=== PATIENT | male | born 1965 | race Caucasian/White ===

== ENCOUNTER 2024-01-06 09:46 | Outpatient (CLI) | payer OTHER, SELFPAY ==
--- NOTE | 2024-01-18 15:30 | WPDHOMESLEEP ---
Sleep Study - Home Unattended Date of Study: 01/06/24 Ordering Provider: Ritesh Alvarez, Interpreting Provider: Abbi Aguirre, DO Home Sleep Study Type: Watch PAT Height: 1.75 m Weight: 109.769 kg Body Mass Index: 35.7 Neck Circumference (inches): 16.5 Bath: 0 Reason for Sleep Study Snoring Sleep History The patient is air 58 old male with seasonal allergies and obesity that had a sleep study ordered by his primary care physician for evaluation of sleep apnea, The patient denies awakening from sleep short of breath. He rarely awakens at night with heartburn, belching or cough. He frequently snores and it is frequently loud enough that others complain. He denies having trouble sleeping when he has a cold. He denies waking up gasping for air throughout the night. He occasionally has breathing problems at night observed by himself or others. He denies sweating excessively at night. He denies having heart palpitations or irregular heartbeats during the night. He rarely falls asleep during the day and never falls asleep while driving. He denies sleep paralysis, cataplexy and hypnagogic / hypnopompic hallucinations. He denies having trouble at school or work due to sleepiness. He denies feeling afraid of going to sleep. He denies having nightmares. He occasionally remembers his dreams. He denies having thoughts racing through his mind. He denies feeling sad or depressed. He rarely has anxiety. He denies having muscular tension. He rarely notices parts of his body jerk. He denies kicking during the night. He denies having crawling and aching feelings in his legs but occasionally has leg pain during the night. He denies grinding his teeth during sleep and denies awakening with morning jaw pain. He is rarely bothered by pain during the day and rarely awakened by pain during the night. He occasionally wakes up feeling stiff in the morning. He occasionally wakes up with sore or achy muscles. He rarely wakes up with pain in the neck, spine and other joints. He goes to bed at midnight on both weekdays and weekends. It takes him 5-10 minutes to fall asleep. He wakes up twice throughout the night to urinate and is able to fall back asleep within 5 minutes. He wakes up at 7:00 a.m. on both weekdays and weekends. He typically gets 6.5 hours of sleep per night. He will stay in bed for 5-10 minutes after waking up in the morning. He currently lives with his and 2 children. He denies consuming any caffeinated beverages within 2 hours of bedtime. He denies engaging in physical exercise before bedtime. He will read before falling asleep. He denies watching television before falling asleep. He denies taking naps in afternoon or the evening. He consumes 2 caffeinated beverages per day. His alcohol consumption varies. He denies tobacco and recreational drug use. [facility] Surgical History Surgical History History of appendectomy History of arthroscopic knee surgery bilateral History of hip replacement bilateral Family History Family History Other Alzheimer disease Cerebrovascular accident Diabetes mellitus Heart attack Malignant neoplasm of prostate Mesothelioma Social History Social History Smoking status: Never smoker Alcohol intake: current Substance use type: does not use Do You Feel Safe in your Home?: Yes Lack of Transportation: No Lack of Food: Never True Current Housing: I Have Housing Concerned About Future Housing: No Difficulty Paying Gas/Electric Bills: No Difficulty Paying for Meds: No Currently Unemployed: No Education: Associate Degree Difficulty w/ Childcare or Family Care: No Living arrangements: with family Occupation/Education: occupation Additional occupation/education comments: i
[2024-01-18 15:31] VITALS: BMI 35.7
== END 2024-01-07 11:56 | disposition home or self-care (01) ==
LOC: ANHCSM 09:48
PROVIDERS: PCP Internal Medicine; Visit Provider Internal Medicine
DX: G47.8 Other sleep disorders (principal)
CPT/HCPCS: 95806

== ENCOUNTER 2024-03-01 07:30 | Outpatient (CLI) | payer OTHER, SELFPAY ==
--- NOTE | 2024-03-01 | ECHO_ITS ---
Patient Info Name: Ritesh Bob Age: 58 years : 1965 Gender: Male Ht: 69 in Wt: 230 lbs BSA: 2.29 m2 HR: 64 bpm BP: 139 / 97 mmHg Technical Quality: Fair Exam Date: 03/01/2024 7:56 AM Exam Location: Echo Lab Patient Status: Outpatient Admit Date: 03/01/2024 Staff Ordering Physician: AntonioRitesh MD Clinical Implementation Specialist: Tuan Ritchie RDCS Attending Provider: DinaRitesh MD Exam Type: CA echo doppler color flow Study Info Indications - Sleep Apnea Complete two-dimensional, color flow and Doppler transthoracic echocardiogram is performed. Summary 1. Complete two-dimensional, color flow and Doppler transthoracic echocardiogram is performed. 2. Left ventricular chamber dimension is normal. 3. Left ventricular systolic function is normal, estimated at 65-70%. 4. The left ventricular diastolic function is grade I diastolic dysfunction. 5. E/e' 8 is minimally elevated. 6. Right atrial chamber dimension is mildly enlarged. 7. There is trace mitral valve regurgitation. 8. No pulmonary hypertension, estimated pulmonary arterial systolic pressure is 24 mmHg. 9. There is trace pulmonic regurgitation. Left Ventricle E/e' 8 is minimally elevated. Left ventricular chamber dimension is normal. Left ventricular systolic function is normal, estimated at 65-70%. The left ventricular diastolic function is grade I diastolic dysfunction. Right Ventricle Right ventricular systolic function is normal and with normal TAPSE 2.0 cm. Right ventricular chamber dimension is normal. Left Atria Left atrial chamber dimension is normal. Right Atria Right atrial chamber dimension is mildly enlarged. Aortic Valve The aortic valve is trileaflet. There is no aortic valve stenosis. There is no aortic valve regurgitation. Pulmonic Valve There is trace pulmonic regurgitation. Mitral Valve There is no mitral valve stenosis. There is trace mitral valve regurgitation. Tricuspid Valve There is no tricuspid valve regurgitation. No pulmonary hypertension, estimated pulmonary arterial systolic pressure is 24 mmHg. Pericardium/Pleural There is no pericardial effusion. Inferior Vena Cava Normal inferior vena cava with >50% collapse upon inspiration consistent with normal right atrial pressure, 5 mmHg. Aorta The aortic root size at the sinus of Valsalva is normal. Left Ventricular Outflow Tract Name Value Normal LVOT 2D LVOT Diameter 2.1 cm LVOT Doppler LVOT Peak Gradient 3 mmHg LVOT Mean Gradient 2 mmHg LVOT VTI 19 cm LVOT VTI/AV VTI Ratio 0.8 LVOT Stroke Volume 64 ml LVOT CO 3.8 l/min LVOT CI 1.7 l/min/m2 Pulmonic Valve Name Value Normal RVOT Doppler RVOT Peak Gradient 1 mmHg PV Doppler
== END 2024-03-01 07:31 | disposition home or self-care (01) ==
PROVIDERS: PCP Internal Medicine; Visit Provider Internal Medicine
DX: G47.30 Sleep apnea, unspecified (principal)
CPT/HCPCS: 93306